=== PATIENT | male | born 2000 | race Two or more races ===

== ENCOUNTER 2023-03-04 15:14 | Emergency (ER) | payer SELFPAY ==
[~2023-03-04] VITALS: Ht 170.2 cm; Wt 58.4 kg
[2023-03-04 15:23] VITALS: BP 114/73; TEMP 97.4
[2023-03-04] MEDS ORDERED: CARB6.5S44 OT (16:13)
[2023-03-04] MEDS ORDERED: AUG875T PO (16:13)
[2023-03-04 16:30] VITALS: PULSE 68; RESP 18; O2SAT 100
== END 2023-03-04 16:31 | disposition home or self-care (01) ==
LOC: ER 15:14
DX: H61.23 Impacted cerumen, bilateral (principal); H60.93 Unspecified otitis externa, bilateral; Z79.899 Other long term (current) drug therapy